=== PATIENT | male | born 1945 | race Caucasian/White ===

== ENCOUNTER → 2021-03-22 | Day surgery (SDC) | payer MEDICARE, OTHER ==
[2021-03-21 13:59] LABS: BASOPHILS # (AUTO) 0.1 (0.0-0.1); BASOPHILS % 0.6 % (0.0-1.0); EOSINOPHILS # (AUTO) 0.2 (0.0-0.4); EOSINOPHILS % 2.2 % (0.0-6.0); HEMATOCRIT 46.2 % (38.2-49.6); HEMOGLOBIN 14.1 g/dL (14.0-18.0); LYMPHOCYTES # (AUTO) 1.9 (1.0-3.2); MEAN CORPUSCULAR HEMOGLOBIN 29.8 pg (28-32); MEAN CORPUSCULAR HGB CONC 30.5 g/dL (31-35); MEAN CORPUSCULAR VOLUME 97.7 fL (81-99); MONOCYTES % 13.1 % (4.4-11.3); NEUTROPHILS # (AUTO) 4.5 (2.1-6.9); NEUTROPHILS % 58.3 % (38.7-80.0); PLATELET COUNT 177 x10e3/uL (140-360); RED BLOOD COUNT 4.73 x10e6/uL (4.3-5.7); RED CELL DISTRIBUTION WIDTH 13.9 % (11.7-14.4)
[2021-03-21 14:16] LABS: INR 1.01
[2021-03-21 14:25] LABS: ALBUMIN 3.7 g/dL (3.5-5.0); ALBUMIN/GLOBULIN RATIO 1.2 (0.8-2.0); ANION GAP 15.8 mmol/L (8-16); CHOL/HDL RATIO 2.8 (3.9-4.7); CREATININE, SERUM 1.02 mg/dL (0.72-1.25); POTASSIUM 4.8 mmol/L (3.5-5.1)
[~2021-03-22] VITALS: Ht 177.8 cm; Wt 127.0 kg
[~2021-03-22] MED LIST: BENZOCAINE 20% SPR 60 ML CAN ONE; DICLOFENAC POTA50 MG PO; ELIQUIS5 MG PO; FLOMAX0.4 MG PO; METOPROLOL TARTRATE INJ 1 MG/ML VIAL ONE; PAROXETINE HCL20 MG PO; POVIDONE IODINE 0.05% 0.05 % ML PO ONE; PROPOFOL IV EMULSION 10 MG/ML 20 ML VIAL ONE; SAW PALMETTO500 MG PO; SODIUM CHLORIDE 0.9% 1000ML 1,000 ML ONE
[2021-03-22 11:10] VITALS: BP 168/135
[2021-03-22 13:40] VITALS: BP 120/73
[2021-03-22 13:55] VITALS: BP 117/81
[2021-03-22 14:10] VITALS: BP 126/87
[2021-03-22 14:25] VITALS: BP 124/82
[2021-03-22 14:37] VITALS: BP 124/82
== END | disposition home or self-care (01) ==
LOC: CATH LAB 10:46
PROVIDERS: ATTEND Internal Medicine Cardiovascular Disease
DX: I48.91 Unspecified atrial fibrillation (principal); I35.1 Nonrheumatic aortic (valve) insufficiency; I34.0 Nonrheumatic mitral (valve) insufficiency; I10 Essential (primary) hypertension; Z01.812 Encounter for preprocedural laboratory examination; Z20.822 Contact with and (suspected) exposure to COVID-19; Z79.02 Long term (current) use of antithrombotics/antiplatelets; Z79.899 Other long term (current) drug therapy
CPT/HCPCS: 36415; 80053; 80061; 85025; 85610; 92960; 93312; 93320; 93325; J2704; J7030; U0002; 93307